=== PATIENT | female | born 1990 | race Caucasian/White ===

== ENCOUNTER 2018-05-01 23:40 | Emergency (ER) | payer MEDICAID ==
[~2018-05-01] VITALS: Ht 149.9 cm; Wt 68.0 kg
[2018-05-02] MEDS ORDERED: ONDANSETRON HCL 4MG/2ML INJ IV STA (05:01)
[2018-05-02] MEDS ORDERED: KETOROLAC 30MG/ML VIAL IV STA (05:01)
[2018-05-02] MEDS ORDERED: SODIUM CHLORIDE 0.9% 1,000 ML IV ONE (05:01)
[2018-05-02 06:49] VITALS: BP 122/66
== END 2018-05-02 06:49 | disposition home or self-care (01) ==
LOC: ER 23:40
DX: J03.90 Acute tonsillitis, unspecified (principal); E86.0 Dehydration; F17.200 Nicotine dependence, unspecified, uncomplicated
CPT/HCPCS: 96374; 96375; 99283; J1885; J2405; J7030

== ENCOUNTER 2021-04-23 21:04 | Emergency (ER) | payer MEDICAID ==
[~2021-04-23] VITALS: Ht 160 cm; Wt 64.0 kg
[2021-04-23 22:40] VITALS: BP 117/89
== END 2021-04-24 00:49 | disposition left against medical advice (07) ==
LOC: ER 21:04
DX: Z53.21 Procedure and treatment not carried out due to patient leaving prior to being seen by health care provider (principal)